=== PATIENT | female | born 1995 | race Caucasian/White ===

== ENCOUNTER 2020-02-24 12:21 | Inpatient (IN) | payer BC ==
[~2020-02-24] VITALS: Ht 160 cm; Wt 93.6 kg
[2020-02-27] MEDS: LACTATED RINGERS 1,000 ML IV SCH ×4 (07:00→20:49)
[2020-02-27] MEDS ORDERED: PREN1TAB60 PO (07:05)
[2020-02-27] MEDS ORDERED: VALA500T4 PO (07:06)
[2020-02-27] MEDS ORDERED: OXYTOCIN 30U/ 0.9% NaCL 500ML 500 ML IV PRN (07:24)
[2020-02-27] MEDS ORDERED: OXYTOCIN 30U/ 0.9% NaCL 500ML 500 ML IV ONE (07:24)
[2020-02-27] MEDS ORDERED: TERBUTALINE 1 MG/ML, 1ML IVPush PRN (07:30)
[2020-02-27] MEDS ORDERED: FENTANYL PF 100 MCG/2ML IVPush PRN (07:30)
[2020-02-27] MEDS ORDERED: TERBUTALINE 1 MG/ML, 1ML SQ PRN (07:30)
[2020-02-27] MEDS ORDERED: ONDANSETRON 2MG/ML, 2ML IVPush PRN ×2 (07:30→19:30)
[2020-02-27 07:57] LABS: BASOPHILS # (AUTO) 0.05 x10^3/uL (0-0.1); BASOPHILS % (AUTO) 1 % (0-1); EOSINOPHILS # (AUTO) 0.14 x10^3/uL (0-0.4); EOSINOPHILS % (AUTO) 1 % (1-7); LYMPHOCYTES % (AUTO) 15 % (22-44); MD NO; MEAN CORPUSCULAR HEMOGLOBIN 29.8 pg (27.0-34.8); MEAN CORPUSCULAR HGB CONC 32.9 g/dL (32.4-35.8); MEAN CORPUSCULAR VOLUME 90.6 fL (80-100); MEAN PLATELET VOLUME 9.8 fL (7.4-10.4); MONOCYTES # (AUTO) 0.71 x10^3/uL (0.2-0.8); MONOCYTES % (AUTO) 6 % (2-9); NEUTROPHILS # (AUTO) 9.52 x10^3/uL (1.8-6.8); NEUTROPHILS % (AUTO) 78 % (42-75); PLATELET COUNT 253 x10^3/uL (130-400); RED BLOOD COUNT 3.98 x10^6/uL (3.82-5.3); RED CELL DISTRIBUTION WIDTH 14.4 % (9.6-15.2)
[2020-02-27] MEDS ORDERED: FENTANYL/BUPIV./NS/PF 250 ML EPIDCONT SCH (07:57)
[2020-02-27] MEDS ORDERED: MISOPROSTOL 25 MCG TABLET ONE (08:09)
[2020-02-27] MEDS ORDERED: FENTANYL PF 500 MCG, BUPIVACAINE/PF 0.5%, 30ML 62.5 ML in SODIUM CHLORIDE 0.9% 177.5 ML EPIDCONT SCH (08:30)
[2020-02-27] MEDS ORDERED: MISOPROSTOL 25 MCG TABLET VG PRN (08:30)
[2020-02-27] MEDS ORDERED: MISOPROSTOL 200 MCG TABLET ONE (09:18)
[2020-02-27] MEDS ORDERED: NEWBORN KIT ONE (09:18)
[2020-02-27] MEDS ORDERED: LIDOCAINE 1%, 20ML ONE (09:18)
[2020-02-27] MEDS ORDERED: OXYTOCIN 30U/ 0.9% NaCL 500ML 500 ML ONE (11:55)
[2020-02-27] MEDS: D5%-LACTATED RINGERS 1,000 ML IV SCH ×3 (15:24→23:24)
[2020-02-27] MEDS ORDERED: BUPIVACAINE 0.25% ONE (18:44)
[2020-02-27] MEDS ORDERED: EPHEDRINE 50 MG/ML, 1ML IVPush PRN (19:30)
[2020-02-27] MEDS ORDERED: FENTANYL PF 500 MCG, BUPIVACAINE/PF 0.5%, 30ML 62.5 ML in SODIUM CHLORIDE 0.9% 177.5 ML IV SCH (19:30)
[2020-02-27] MEDS ORDERED: NALOXONE 0.4 MG/ML, 1ML IVPush PRN (19:30)
[2020-02-27] MEDS ORDERED: DIPHENHYDRAMINE 50 MG/ML, 1ML IVPush PRN (19:30)
[2020-02-27] MEDS ORDERED: LACTATED RINGERS 1,000 ML IVBOLUS PRN (19:30)
[2020-02-27] MEDS ORDERED: LIDOCAINE/MPF 2%-EPI 1:200K, 20 ML ONE (20:12)
[2020-02-27] MEDS ORDERED: ONDANSETRON 2MG/ML, 2ML ONE (23:17)
[2020-02-28] MEDS: LACTATED RINGERS 1,000 ML IV SCH (00:29)
[2020-02-28] MEDS ORDERED: ONDANSETRON 2MG/ML, 2ML IV PRN (01:00)
[2020-02-28] MEDS ORDERED: OXYcodone/APAP 5/325MG TABLET PO PRN ×2 (01:00)
[2020-02-28] MEDS ORDERED: MISOPROSTOL 200 MCG TABLET PR PRN (01:00)
[2020-02-28] MEDS ORDERED: SIMETHICONE 80 MG CHEW TAB PO PRN (01:00)
[2020-02-28] MEDS: OXYTOCIN 30U/ 0.9% NaCL 500ML 500 ML IV SCH ×3 (02:02→20:54)
[2020-02-28] MEDS: IBUPROFEN 600 MG TABLET PO PRN ×3 (03:00→15:42)
[2020-02-28] MEDS ORDERED: IBUPROFEN 600 MG TABLET ONE (03:02)
[2020-02-28 03:40] VITALS: BP 107/60
[2020-02-28 07:20] VITALS: BP 113/73
[2020-02-28] MEDS: PRENATAL VIT/IRON/FA 1 EACH TABLET PO SCH (09:25)
[2020-02-28] MEDS: DOCUSATE 100 MG CAPSULE PO PRN ×2 (09:25→19:14)
[2020-02-28 09:33] LABS: MEAN CORPUSCULAR HGB CONC 32.9 g/dL (32.4-35.8); MEAN CORPUSCULAR VOLUME 91.3 fL (80-100); MEAN PLATELET VOLUME 9.6 fL (7.4-10.4); PLATELET COUNT 232 x10^3/uL (130-400); RED BLOOD COUNT 3.79 x10^6/uL (3.82-5.3); RED CELL DISTRIBUTION WIDTH 14.7 % (9.6-15.2)
[2020-02-28 10:59] LABS: BASOPHILS # (AUTO) 0.01 x10^3/uL (0-0.1); BASOPHILS % (AUTO) 0 % (0-1); EOSINOPHILS % (AUTO) 0 % (1-7); LYMPHOCYTES # (AUTO) 1.56 x10^3/uL (1-3.4); LYMPHOCYTES % (AUTO) 7 % (22-44); MD SCAN; MONOCYTES # (AUTO) 0.41 x10^3/uL (0.2-0.8); MONOCYTES % (AUTO) 2 % (2-9); NEUTROPHILS # (AUTO) 19.05 x10^3/uL (1.8-6.8); NEUTROPHILS % (AUTO) 91 % (42-75)
[2020-02-28 12:15] VITALS: BP 119/80
[2020-02-28 16:00] VITALS: BP 115/76
[2020-02-28 19:00] VITALS: BP 108/69
[2020-02-29 00:08] VITALS: BP 100/69
[2020-02-29 02:40] VITALS: BP 102/68
[2020-02-29] MEDS: OXYTOCIN 30U/ 0.9% NaCL 500ML 500 ML IV SCH (06:54)
[2020-02-29] MEDS: DOCUSATE 100 MG CAPSULE PO PRN (07:35)
[2020-02-29] MEDS: IBUPROFEN 600 MG TABLET PO PRN (07:35)
[2020-02-29] MEDS: PRENATAL VIT/IRON/FA 1 EACH TABLET PO SCH (07:35)
[2020-02-29 07:46] VITALS: BP 106/72
[2020-02-29] MEDS ORDERED: IBUP-1222 PO (10:45)
== END 2020-02-29 13:45 | disposition home or self-care (01) | DRG 807 ==
LOC: LDIP 02-27 06:44 → 2NW 02-28 03:20
PROVIDERS: ADMIT Obstetrics & Gynecology; ATTEND Obstetrics & Gynecology
PROC: 10E0XZZ Delivery of Products of Conception, External Approach (ICD-10-PCS; principal; 2020-02-28)
PROC: 3E0P3VZ Introduction of Hormone into Female Reproductive, Percutaneous Approach (ICD-10-PCS; 2020-02-28)
PROC: 0HQ9XZZ Repair Perineum Skin, External Approach (ICD-10-PCS; 2020-02-28)
DX: O48.0 Post-term pregnancy (principal); Z37.0 Single live birth; O99.02 Anemia complicating childbirth; D50.9 Iron deficiency anemia, unspecified; O66.0 Obstructed labor due to shoulder dystocia; Z3A.40 40 weeks gestation of pregnancy; O70.0 First degree perineal laceration during delivery; Z91.013 Allergy to seafood; Z90.49 Acquired absence of other specified parts of digestive tract
CPT/HCPCS: 36415; J3490; J7121; S0020; 85025; 86592; 86850; 86900; G0378; J2405; J3010; J2590; J7050; J7120